=== PATIENT | female | born 1945 | race American Indian/Alaskan Native ===

== ENCOUNTER 2024-05-06 13:50 | Inpatient (IN) | payer MEDICAID, OTHER ==
[~2024-05-06] VITALS: Ht 157.5 cm; Wt 68.7 kg
[~2024-05-06 13:50] MED LIST: DIA5T PO; LEVO25TA6 PO; METF-370 PO
--- NOTE | 2024-05-06 14:43 | ED.PDOC ---
History of Present Illness HPI Comments 78F presents to the Er w/ no prior hx associated to the c/c of dizziness. Pt's friend who is the Pt's neighbor reports that the pt has been having gen weakness, Cough and Dizziness for the past 10 days. Pt states "I'm not feeling good". Pt in triage was SAT 97% RA. PMHx of Asthma, HTN and COPD. Denies chills, fever, N/V/D, SOB, CP or no other associated symptom's, modifiers, recent injuries or sick contacts at this time. Chief Complaint: Dizziness Time Seen by MD: 14:30 Primary Care Provider: NATALIE Prasad Notes: Nurses Notes, Medications Allergies: Coded Allergies: Ethanol (Verified Allergy, 02/19/12) Guaifenesin (Verified Allergy, 02/19/12) Ibuprofen (Verified Allergy, 02/19/12) Information Source: Patient, Friend Mode of Arrival: Ambulatory Severity: Moderate Timing: Days Duration: Since onset, Days Prehospital treatment: None Past Medical History PAST MEDICAL HISTORY: Asthma, COPD, HTN Surgical History: Denies all surgeries EMERGENCY PLANNING AND RESPONSE MANAGER History: No Pertinent EMERGENCY PLANNING AND RESPONSE MANAGER History Family History Family History: Reviewed,noncontributory to illness, Unknown Social History Smoker: Non-Smoker Alcohol: Denies ETOH Use Drugs: Denies Drug Use Lives In: Home Constitutional: reports: weakness; denies: chills, diaphoresis, fatigue, fever, malaise, sweats, others EENTM: denies: blurred vision, double vision, ear bleeding, ear discharge, ear drainage, ear pain, ear ringing, eye pain, eye redness, hearing loss, mouth pain, mouth swelling, nasal discharge, nose bleeding, nose congestion, nose pain, photophobia, tearing, throat pain, throat swelling, voice changes, others Respiratory: reports: cough; denies: hemoptysis, orthopnea, SOB at rest, short ness of breath, SOB with excertion, stridor, wheezing, others Cardiovascular: denies: chest pain, dizzy spells, diaphoresis, Dyspnea on exertion, edema, irregular heart beat, left arm pain, lightheadedness, palpitations, PND, syncope, others Gastrointestinal: denies: abdomen distended, abdominal pain, blood streaked bowels, constipated, diarrhea, dysphagia, difficulty swallowing, hematemesis, melena, nausea, poor appetite, poor fluid intake, rectal bleeding, rectal pain, vomiting, others Genitourinary: denies: abnormal vagina bleeding, burning, dyspareunia, dysuria, flank pain, frequency, hematuria, incontinence, pain, , vagina discharge, urgency, others Neurological: reports: dizziness; denies: fainting, headache, left sided numbness, left sided weakness, numbness, paresthesia, pre-existing deficit, right sided numbness, right sided weakness, seizure, speech problems, tingling, tremors, weakness, others Musculoskeletal: denies: back pain, gout, joint pain, joint swelling, muscle pain, muscle stiffness, neck pain, others Integumetry: denies: bruises, change in color, change in hair/nails, dryness, laceration, lesions, lumps, rash, wounds, others Allergic/Immunocompromised: denies: Difficulty Healing, Frequent Infections, Hives, Itching, others Hematologic/Lymphatic: denies: anemia, blood clots, easy bleeding, easy bruising, swollen glands, others Endocrine: denies: excessive hunger, excessive sweating, excessive thirst, excessive urination, flushing, intolerance to cold, intolerance to heat, unexplained weight gain, unexplained weight loss, others Psychiatric: denies: anxiety, bipolar disorder, depression, hopeless, panic disorder, schizophrenia, sleepless, suicidal, others All Other Systems: Reviewed and Negative Physical Exam General Appearance: Moderate Distress, Normal HEENT: Normal ENT Inspection, Pharynx Normal, TMs Normal Neck: Full Range of Motion, Non-Tender, Normal, Normal Inspection Respiratory: Chest Non-Tender, Lungs Clear, No Accessory Muscle Use, No Respiratory Distress, Normal Breath Sounds Cardiovascular: No Edema, No JVD, No Murmur, No Gallop, Normal Peripheral Pulses, Regular Rate/Rhythm Breast Exam: Deferred Gastrointestinal: No Organomegaly, Non Tender, No Pulsatile Mass, Normal Bowel Sounds, Soft Genitalia: Deferred Pelvic: Deferred Rectal: Deferred Extremities: No calf tenderness, Normal capillary refill, Normal inspection, Normal range of motion, Non-tender, No pedal edema Musculoskeletal : Apperance: Normal 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 Was a procedure done?: No Differential Dx Considerations may include: Autonomic disorder Electrolyte imbalance X-Ray, Labs, Meds, VS Vital Signs Date Time Temp Pulse Resp B/P (MAP) Pulse Ox O2 Delivery O2 Flow Rate FiO2 05/06/24 14:41 19 92 Nasal Cannula* 3 32 05/06/24 14:37 99.8 124 19 135/75 (95) 92 99.8 05/06/24 14:31 119 Lab Test 05/06/24 14:37 05/06/24 14:24 Range/Units White Blood Count 15.4 H 4.4-10.8 10^3/uL Red Blood Count 4.17 4.0-5.20 10^6/uL Hemoglobin 12.7 12.2-16.2 g/dL Hematocrit 37.9 36.0-46.0 % Mean Corpuscular Volume 91.0 80.0-100.0 fL Mean Corpuscular Hemoglobin 30.5 28.0-32.0 pg Mean Corpuscular Hemoglobin Concent 33.5 32.0-36.0 g/dL Red Cell Distribution Width 14.0 11.8-14.3 % Platelet Count 335 140-450 10^3/uL Mean Platelet Volume 7.4 6.9-10.8 fL Neutrophils (%) (Auto) 87.6 H 37.0-80.0 % Lymphocytes (%) (Auto) 5.4 L 10.0-50.0 % Monocytes (%) (Auto) 6.1 0.0-12.0 % Eosinophils (%) (Auto) 0.1 0.0-7.0 % Basophils (%) (Auto) 0.8 0.0-2.0 % Neutrophils # (Auto) 13.5 H 1.6-8.6 10 ^3/uL Lymphocytes # (Auto) 0.8 0.4-5.4 10 ^3/uL Monocytes # (Auto) 0.9 0-1.3 10 ^3/uL Eosinophils # (Auto) 0 0-0.8 10 ^3/uL Basophils # (Auto) 0.1 0-0.2 10 ^3/uL Nucleated Red Blood Cells 0.0 % Sodium Level 135 L 136-145 mmol/L Potassium Level 4.7 3.5-5.1 mmol/L Chloride Level 103 98-107 mmol/L Carbon Dioxide Level 25 20-31 mmol/L Anion Gap 7 5-15 Blood Urea Nitrogen 24 H 9-23 mg/dL Creatinine 1.10 H 0.550-1.02 mg/dL Glomerular Filtration Rate Calc 52 >90 mL/min BUN/Creatinine Ratio 21.8 H 10.0-20.0 Serum Glucose 145 H 74-106 mg/dL Calcium Level 9.1 8.7-10.4 mg/dL Troponin I High Sensitivity 990 *H </=34 ng/L POC Glucose 132 H 70-106 mg/dl Patient slightly disoriented. Came in for dizziness. Oxygen saturation is low. Tachycardia. Placed on oxygen. Unknown why her oxygen saturation is low. Patient unable to answering any questions. She does not remember events. Possible dementia. Blood sugar elevated. CT scan. Possibly will need MRI. Possible pneumonitis. Was given steroid. History of asthma. Explained to the patient. Continue to monitor. EKG does not show any acute changes. Cardiac marker elevated. WBC elevated. Was given Rocephin. Was given azithromycin. Time of 1ST Reevaluation: 15:00 Reevaluation 1ST: Unchanged Patient Education/Counseling: Diagnosis, Treatment, Prognosis Family Education/Counseling: Diagnosis, Treatment, Prognosis Departure 1 Departure Time of Disposition: 15:10 Impression: Primary Impression: Metabolic encephalopathy Additional Impressions: Pneumonitis Non-STEMI (non-ST elevated myocardial infarction) Disposition: ADMITTED INPATIENT Admit to: Med Surg Condition: Guarded Critical Care Note Critical Care Time?: Yes (90 min-critical care time only) Critical care comment: Placed on oxygen Stability Stability form required: No Heart Score Heart Score: Heart Score Response (Comments) Value History Slightly Suspicious 0 EKG Normal 0 Age >65 2 Risk Factors >3 or Hx ASHD 2 Troponin Normal limit 0 Total 4 I personally scribed for WILMA AC MD ([email or web address]) on 05/06/24 at 14:43. Electronically submitted by Florentino Mcnally ([email or web address]). WILMA AC MD May 06, 2024 14:43
[2024-05-06 15:02] LABS: Basophils # (auto) 0.1 10 ^3/uL (0-0.2); Basophils % (auto) 0.8 % (0.0-2.0); Eosinophils # (auto) 0 10 ^3/uL (0-0.8); Eosinophils % (auto) 0.1 % (0.0-7.0); Hematocrit 37.9 % (36.0-46.0); Hemoglobin 12.7 g/dL (12.2-16.2); Lymphocytes # (auto) 0.8 10 ^3/uL (0.4-5.4); Lymphocytes % (auto) 5.4 % (10.0-50.0); Mean Corpuscular Hemoglobin 30.5 pg (28.0-32.0); Mean Corpuscular Hgb Conc. 33.5 g/dL (32.0-36.0); Monocytes # (auto) 0.9 10 ^3/uL (0-1.3); Monocytes % (auto) 6.1 % (0.0-12.0); Neutrophils # (auto) 13.5 10 ^3/uL (1.6-8.6); Neutrophils % (auto) 87.6 % (37.0-80.0); Platelet Count (auto) 335 10^3/uL (140-450); Red Blood Cells 4.17 10^6/uL (4.0-5.20); White Blood Cell 15.4 10^3/uL (4.4-10.8)
[2024-05-06 15:08] LABS: Chloride 103 mmol/L (98-107); Potassium 4.7 mmol/L (3.5-5.1)
[2024-05-06 15:09] LABS: Anion Gap 7 (5-15); Calcium 9.1 mg/dL (8.7-10.4); Carbon Dioxide 25 mmol/L (20-31)
--- NOTE | 2024-05-06 15:10 | DVH ---
EXAM: CT HEAD WITHOUT CONTRAST INDICATION: dizzy TECHNIQUE: CT of the head without intravenous contrast. Radiation Dose : 1. Head: CT Dose: CTDI volume is 52.3 mGy. Dose-length product is 1031 mGy*cm The dose indicators for CT are the volume Computed Tomography (CT) Dose Index (CTDIvol) and the Dose Length Product (DLP), and are measured in units of mGy and mGy-cm, respectively. These indicators are not patient dose, but values generated from the CT scanner acquisition factors. The report includes radiation exposure data for exposures received during this examination. COMPARISON: None FINDINGS: There is no evidence of acute intracranial hemorrhage, extra-axial collection, mass effect, midline s hift, herniation or hydrocephalus. The ventricles, sulci and cisterns are age appropriate. The palomares-white differentiation is intact. Patchy periventricular and subcortical white matter hypoattenuation is nonspecific but may be related to small vessel ischemic disease. The visualized paranasal sinuses and mastoid air cells are clear. The surrounding soft tissues and osseous structures are unremarkable. IMPRESSION: No acute intracranial abnormality. Radiation optimization: All CT scans at this facility use at least one of these dose optimization fozia hniques: automated exposure control mA and/or kV adjustment per patient size (includes targeted exam s where dose is matched to clinical indication) or iterative reconstruction.
--- NOTE | 2024-05-06 15:10 | DVH ---
CHEST RADIOGRAPH Indication: sob Technique: Single frontal view of the chest was obtained COMPARISON: None FINDINGS: Lines and Tubes: None Lungs: Patchy opacities in the left lower lobe. Pleura: No effusion. No pneumothorax. Cardiomediastinal contours: Unremarkable Bones: Unremarkable IMPRESSION: Patchy opacities in the left lower lobe may represent atelectasis or early/ developing pneumonia.
[2024-05-06 15:14] LABS: BUN/Creatinine Ratio 21.8 (10.0-20.0)
[2024-05-06 15:15] LABS: Blood Urea Nitrogen 24 mg/dL (9-23); Glucose 145 mg/dL (74-106); Sodium 135 mmol/L (136-145)
[2024-05-06] MEDS: IOHEXOL 350 MG/ML 100ML IJ ONE (16:35)
--- NOTE | 2024-05-06 16:36 | DVHINCON2 ---
Date Seen: May 06, 2024 Referring Physician MD Xiang Reason for Consultation NSTEMI History of Present Illness This is a 78-year-old female who presented to the emergency room with a chief complaint of generalized weakness for 10 days. The patient complains of generalized weakness associated with some disorientation, dizziness, SOB, DE JESUS, and a dry cough progressively getting worse. Upon arrival she was found with an oxygen saturation level of 87% on room air. Denies chest pain, palpitations, diaphoresis, or syncopal events. Reports seeing an urgent care provider yesterday who prescribed azithromycin and albuterol which she has not taken. She underwent multiple 12 lead electrocardiograms x 2 revealing sinus rhythm with an associated right bundle branch block and no evidence of acute ischemia. Cardiology consulted on urgent basis given initial troponin level in the 900s ng/L. Denies family history for cardiovascular disease. Denies taking any of her previously prescribed home medications or seeing a PCP on regular basis. Significant medical history includes nmg-[id number]-[id number] diabetes mellitus, thyroid disease, COPD without O2 dependence, and tobacco use including a smoking history x 35 pack-years. Past Medical History Past medical history reviewed. No other significant than mentioned above. Past Surgical History Denies any past surgical history. Family History Family history reviewed. Denies for cardiovascular disease. Social History Denies the use of illicit drugs or alcohol. Admits to tobacco use. See HPI. Allergies: Coded Allergies: Ethanol (Verified Allergy, Unknown, 05/06/24) Guaifenesin (Verified Allergy, Unknown, 05/06/24) Ibuprofen (Verified Allergy, Unknown, 05/06/24) Home Meds Home medications reviewed. Review of Systems Constitutional: Generalized weakness Ears, Nose, & Throat: No symptom reported Eyes: No symptom reported Neurological: Dizziness, transient disorientation Pulmonary/Respiratory: SOB, dry cough Cardiovascular: No symptom reported Gastrointestinal: No symptom reported Genitourinary: No symptom reported Musculoskeletal: No symptom reported Skin: No symptom reported Psychiatric: No symptom reported Endocrine: No symptom reported Hemotologic/Lymphatic: No symptom reported Vital Signs Vital Signs Date Time Temp Pulse Resp B/P (MAP) Pulse Ox O2 Delivery O2 Flow Rate FiO2 05/06/24 15:37 103 05/06/24 14:41 19 92 Nasal Cannula* 3 32 05/06/24 14:37 99.8 135/75 (95) 99.8 Physical Exam General Appearance: Cooperative. Well developed. Well nourished. Kyfk-[id number] acute respiratory distress Head Exam: Normal inspection Neck Exam: Normal inspection. Non-tender. Normal alignment Pulmonary/Respiratory: Chest non-tender. Clear bilateral breath sounds. O2 via NC Cardiovascular/Chest: Regular rate and rhythm. S1, S2. Sinus rhythm with an associated RBBB. No murmurs. No JVD. Peripheral Pulses: 2+ Radial (R). 2+ Radial (L). 2+ Pedal (R). 2+ Pedal (L) Abdominal Exam: Normal bowel sounds. Soft. Nontender. No hepatospenomegaly. No masses Ankle Exam: Negative ankle edema Lower extremities: Negative lower extremity edema Neuro/Mental Status: A&O x3. Coherent Thoughts/Psych: Normal thought pattern. Appropriate mood and affect. Hostile Appearance: In no acute distress Skin Exam: Normal inspection. Normal color. Warm. Dry Labs/Diagnostic Data Labs Test 05/06/24 14:37 05/06/24 14:24 Range/Units White Blood Count 15.4 H 4.4-10.8 10^3/uL Red Blood Count 4.17 4.0-5.20 10^6/uL Hemoglobin 12.7 12.2-16.2 g/dL Hematocrit 37.9 36.0-46.0 % Mean Corpuscular Volume 91.0 80.0-100.0 fL Mean Corpuscular Hemoglobin 30.5 28.0-32.0 pg Mean Corpuscular Hemoglobin Concent 33.5 32.0-36.0 g/dL Red Cell Distribution Width 14.0 11.8-14.3 % Platelet Count 335 140-450 10^3/uL Mean Platelet Volume 7.4 6.9-10.8 fL Neutrophils (%) (Auto) 87.6 H 37.0-80.0 % Lymphocytes (%) (Auto) 5.4 L 10.0-50.0 % Monocytes (%) (Auto) 6.1 0.0-12.0 % Eosinophils (%) (Auto) 0.1 0.0-7.0 % Basophils (%) (Auto) 0.8 0.0-2.0 % Neutrophils # (Auto) 13.5 H 1.6-8.6 10 ^3/uL Lymphocytes # (Auto) 0.8 0.4-5.4 10 ^3/uL Monocytes # (Auto) 0.9 0-1.3 10 ^3/uL Eosinophils # (Auto) 0 0-0.8 10 ^3/uL Basophils # (Auto) 0.1 0-0.2 10 ^3/uL Nucleated Red Blood Cells 0.0 % Sodium Level 135 L 136-145 mmol/L Potassium Level 4.7 3.5-5.1 mmol/L Chloride Level 103 98-107 mmol/L Carbon Dioxide Level 25 20-31 mmol/L Anion Gap 7 5-15 Blood Urea Nitrogen 24 H 9-23 mg/dL Creatinine 1.10 H 0.550-1.02 mg/dL Glomerular Filtration Rate Calc 52 >90 mL/min BUN/Creatinine Ratio 21.8 H 10.0-20.0 Serum Glucose 145 H 74-106 mg/dL Calcium Level 9.1 8.7-10.4 mg/dL Troponin I High Sensitivity 990 *H </=34 ng/L POC Glucose 132 H 70-106 mg/dl Assessment Sepsis with associated PNA Acute hypoxic respiratory failure Rule out pulmonary emboli NSTEMI, likely type 2 secondary to above Right bundle branch block Rib-usdukyu-lfrewppho diabetes mellitus Thyroid disease Nicotine dependence Plan/Recommendation (Dr. Michel) Likely NSTEMI type 2 secondary to sepsis with pneumonia. Twelve lead electrocardiogram reviewed revealing a sinus rhythm without evidence of ischemia. We will continue further cardiac evaluation with a transthoracic echocardiogram to rule out structural heart disease. The patient has also been scheduled for a CT angio with contrast to rule out a pulmonary embolus. Initiate therapeutic Lovenox. Serial troponin levels to follow. Obtain COVID- 19 and influenza swabs. Obtain blood cultures. Initiate broad spectrum ABX therapy and IVF. Rest of recommendations per clinical course. Thank you for allowing us to participate in this patient's care. Please call if you have any questions or concerns. Critical care time: 30 min. This medical document was created using an electronic medical record system with voice recognition software and computerized dictation system. Although this document has been carefully reviewed, there might still be some phonetic and typographical errors. Occasional wrong-word or ``sound-alike substitutions may have occurred due to the inherent limitations of voice recognition software. These areas are purely typographical due to imperfections of the software programs and do not reflect any compromise in the patient's medical care. Please read the chart carefully and recognize, using context, where these substitutions have occurred. Plan discussed with: Patient, Other NYHA Physical activity limitations: NA Date of Service: May 06, 2024 Billing Provider: YOVANNY ELENA Cardiology Common Codes: 53757-[id number] CARE 30-74 MIN YOVANNY ELENA May 06, 2024 16:36
[2024-05-06] MEDS: ENOXAPARIN SOD 60 MG/0.6 ML SYRINGE SC ONE (16:58)
[2024-05-06] MEDS: cefTRIAXone 1GM/50ML D5W 50 ML IV ONE (17:00)
[2024-05-06 17:17] LABS: Triglycerides 90 mg/dL (< 150)
[2024-05-06 17:18] LABS: LDL Cholesterol 82 mg/dL (< 100)
[2024-05-06 17:19] LABS: Cholesterol 136 mg/dL (< 200)
[2024-05-06 17:21] LABS: HDL Cholesterol 39 mg/dL (40-59)
[2024-05-06] MEDS: ENOXAPARIN SOD 60 MG/0.6 ML SYRINGE SC SCH (17:21)
[2024-05-06 17:42] VITALS: PULSE 88; RESP 16; O2SAT 96
[2024-05-06 18:17] LABS: Rapid Influenza A Negative (Negative); Rapid Influenza B Negative (Negative)
[2024-05-06 18:17] LABS: COVID19 ANTIGEN SOFIA FIA NEGATIVE (NEGATIVE)
[2024-05-06] MEDS ORDERED: ONDANSETRON HCL 4 MG/2 ML VIAL IV PRN (19:30)
[2024-05-06] MEDS ORDERED: NITROGLYCERIN 0.4 MG SL TAB SL PRN (19:30)
[2024-05-06] MEDS ORDERED: ALBUTEROL SULF 2.5 MG/0.5ML(0.5%) NEB SOLN NEB PRN (19:30)
[2024-05-06] MEDS ORDERED: MORPHINE SULFATE INJ 2 MG/ml SYRG IV PRN (19:30)
[2024-05-06] MEDS ORDERED: DEXTROSE (50%) 50ML SYRG IV PRN (19:30)
[2024-05-06 20:11] LABS: Lactic Acid w/Reflex 2.6 mmol/L (0.4-2.0)
[2024-05-06 20:50] VITALS: O2SAT 92
[2024-05-06 21:16] VITALS: BP 110/57; PULSE 88; RESP 18; TEMP 99.8; O2SAT 92
[2024-05-06] MEDS: ACCU-CHEK COMFORT CURVE STRIP VI SCH (22:00)
[2024-05-06] MEDS: InsuLIN REG 1unit/0.01ml Soln (100units/ml) SC SCH (22:00)
[2024-05-06 22:05] VITALS: BP 123/74; PULSE 83; RESP 18; TEMP 97.3; O2SAT 93
[2024-05-06] MEDS: ATORVASTATIN 20 MG TAB PO SCH (22:48)
[2024-05-06] MEDS: AZITHROMYCIN 500MG/ 250ML 250 ML IV ONE (22:57)
[2024-05-06] MEDS: SODIUM CHLORIDE 0.9% 1,000 ML IV ONE (22:59)
--- NOTE | 2024-05-06 23:19 | DVHHP2 ---
History of Present Illness Reason for Visit: Generalized weakness History of Present Illness 78-year-old female presents for evaluation of generalized weakness. Patient's friend called EMS due to noting patient getting progressively weaker and complaining of dizziness over the past couple of days. Patient currently denies chest pain or shortness for breath. Denies cough or fever. No abdominal pain or nausea. Past Medical History Diabetes mellitus, hypertension, COPD, asthma Past Surgical History Denies Family History Noncontributory Smoke: No ALCOHOL: none Drugs: None Lives: with Family Review of Systems Review of Systems Review of systems are currently negative otherwise addressed in HPI. Allergies: Coded Allergies: Ethanol (Verified Allergy, Unknown, 05/06/24) Guaifenesin (Verified Allergy, Unknown, 05/06/24) Ibuprofen (Verified Allergy, Unknown, 05/06/24) Medications Current Medications Medications Dose Ordered Sig/Glory Route Start Time Stop Time Status Last Admin Dose Admin Enoxaparin Sodium 60 mg Q12HR SC 05/06/24 22:00 Albuterol 2.5 mg Q6HPRN PRN NEB 05/06/24 19:30 Levothyroxine Sodium 25 mcg QAM@0600 PO 05/07/24 06:00 Ceftriaxone Sodium 50 ml @ 100 mls/hr DAILY@09 IV 05/07/24 09:00 Azithromycin 250 ml @ 125 mls/hr DAILY IV 05/07/24 10:00 Aspirin 162 mg DAILY PO 05/07/24 10:00 Atorvastatin Calcium 20 mg HS PO 05/06/24 22:00 05/06/24 22:48 20 MG Diagnostic Test (Pha) 1 strip ACHS 05/06/24 22:00 05/06/24 22:00 1 STRIP Insulin Human Regular ACHS SC 05/06/24 22:00 Dextrose 50 ml UD PRN IV 05/06/24 19:30 Ondansetron HCl 4 mg Q4HP PRN IV 05/06/24 19:30 Nitroglycerin 0.4 mg Q5MINP PRN SL 05/06/24 19:30 Morphine Sulfate 2 mg Q30M PRN IV 05/06/24 19:30 Exam Vital Signs Vital Signs Date Time Temp Pulse Resp B/P (MAP) Pulse Ox O2 Delivery O2 Flow Rate FiO2 05/06/24 21:16 99.8 88 18 110/57 92 99.8 05/06/24 20:50 Room Air* 0 21 Exam Gen: 78 year female mild distress Skin: Warm, dry, normal color and texture, no rash. HEENT: Normocephalic atraumatic, mucous membranes moist and pink. Neck: Cervical and supraclavicular nodes normal without enlargement, trachea is midline, thyroid gland is normal without masses. Pulmonary: Clear to auscultation and percussion bilaterally. Cardiac: Regular rate and rhythm. No murmur Abdomen: Soft, nontender, nondistended, bowel sounds present all 4 quadrants, no guarding, no rigidity, no organomegaly. Extremities: No cyanosis, clubbing, no edema Neuro: Cranial nerves II through XII grossly intact, normal affect and speech, no focal motor deficits. Labs/Xrays ORDERING PHYSICIAN: WILMA AC MD PROCEDURE(s): CXRP - CHEST PORTABLE REASON: sob ORDER NUMBER(s): [id number], ACCESSION NUMBER(s): [id number] CHEST RADIOGRAPH Indication: sob Technique: Single frontal view of the chest was obtained COMPARISON: None FINDINGS: Lines and Tubes: None Lungs: Patchy opacities in the left lower lobe. Pleura: No effusion. No pneumothorax. Cardiomediastinal contours: Unremarkable Bones: Unremarkable IMPRESSION: Patchy opacities in the left lower lobe may represent atelectasis or early/ developing pneumonia. RING PHYSICIAN: WILAM AC MD PROCEDURE(s): HWOCT - HEAD WITHOUT CONTRAST REASON: dizzy ORDER NUMBER(s): [id number], ACCESSION NUMBER(s): [id number] EXAM: CT HEAD WITHOUT CONTRAST INDICATION: dizzy TECHNIQUE: CT of the head without intravenous contrast. Radiation Dose : 1. Head: CT Dose: CTDI volume is 52.3 mGy. Dose-length product is 1031 mGy*cm The dose indicators for CT are the volume Computed Tomography (CT) Dose Index (CTDIvol) and the Dose Length Product (DLP), and are measured in units of mGy and mGy-cm, respectively. These indicators are not patient dose, but values generated from the CT scanner acquisition factors. The report includes radiation exposure data for exposures received during this examination. COMPARISON: None FINDINGS: There is no evidence of acute intracranial hemorrhage, extra-axial collection, mass effect, midline shift, herniation or hydrocephalus. The ventricles, sulci and cisterns are age appropriate. The palomares-white differentiation is intact. Patchy periventricular and subcortical white matter hypoattenuation is nonspecific but may be related to small vessel ischemic disease. The visualized paranasal sinuses and mastoid air cells are clear. The surrounding soft tissues and osseous structures are unremarkable. IMPRESSION: No acute intracranial abnormality. Radiation optimization: All CT scans at this facility use at least one of these dose optimization techniques: automated exposure control mA and/or kV adjustment per patient size (includes targeted exams where dose is matched to clinical indication) or iterative reconstruction. Labs Test 05/06/24 22:22 05/06/24 21:20 05/06/24 19:33 05/06/24 16:36 Range/Units POC Glucose 120 H 70-106 mg/dl Lactic Acid Level 1.0 0.4-2.0 mmol/L Troponin I High Sensitivity 2590 *H </=34 ng/L Influenza Type A Antigen Negative Negative Influenza Type B Antigen Negative Negative Test 05/06/24 14:37 05/06/24 00:00 Range/Units White Blood Count 15.4 H 4.4-10.8 10^3/uL Red Blood Count 4.17 4.0-5.20 10^6/uL Hemoglobin 12.7 12.2-16.2 g/dL Hematocrit 37.9 36.0-46.0 % Mean Corpuscular Volume 91.0 80.0-100.0 fL Mean Corpuscular Hemoglobin 30.5 28.0-32.0 pg Mean Corpuscular Hemoglobin Concent 33.5 32.0-36.0 g/dL Red Cell Distribution Width 14.0 11.8-14.3 % Platelet Count 335 140-450 10^3/uL Mean Platelet Volume 7.4 6.9-10.8 fL Neutrophils (%) (Auto) 87.6 H 37.0-80.0 % Lymphocytes (%) (Auto) 5.4 L 10.0-50.0 % Monocytes (%) (Auto) 6.1 0.0-12.0 % Eosinophils (%) (Auto) 0.1 0.0-7.0 % Basophils (%) (Auto) 0.8 0.0-2.0 % Neutrophils # (Auto) 13.5 H 1.6-8.6 10 ^3/uL Lymphocytes # (Auto) 0.8 0.4-5.4 10 ^3/uL Monocytes # (Auto) 0.9 0-1.3 10 ^3/uL Eosinophils # (Auto) 0 0-0.8 10 ^3/uL Basophils # (Auto) 0.1 0-0.2 10 ^3/uL Nucleated Red Blood Cells 0.0 % Sodium Level 135 L 136-145 mmol/L Potassium Level 4.7 3.5-5.1 mmol/L Chloride Level 103 98-107 mmol/L Carbon Dioxide Level 25 20-31 mmol/L Anion Gap 7 5-15 Blood Urea Nitrogen 24 H 9-23 mg/dL Creatinine 1.10 H 0.550-1.02 mg/dL Glomerular Filtration Rate Calc 52 >90 mL/min BUN/Creatinine Ratio 21.8 H 10.0-20.0 Serum Glucose 145 H 74-106 mg/dL Hemoglobin A1c 6.2 H <5.7 % A1C Calcium Level 9.1 8.7-10.4 mg/dL B-Type Natriuretic Peptide 246.42 0-100 pg/mL Triglycerides Level 90 < 150 mg/dL Cholesterol Level 136 < 200 mg/dL LDL Cholesterol 82 < 100 mg/dL HDL Cholesterol 39 L 40-59 mg/dL Thyroid Stimulating Hormone (TSH) 3.05 0.55-4.78 uIU/mL SARS-CoV-2 Antigen (Rapid) Negative NEGATIVE Assessment/Plan Assessment/Plan Assessment NSTEMI Community-acquired pneumonia Leukocytosis Acute kidney injury Diabetes mellitus ? Dementia Plan Admit the patient to telemetry to the hospitalist Cardiology consultation Lovenox b.i.d. Rocephin/azithromycin Resume home medications Continue treatment per orders. Plan discussed with: Patient My Orders Orders - JOHN CASTRO Procedure Category Date Status Time Albuterol Medneb PHA 05/06/24 In Process (Ventolin Medneb) 19:30 Levothyroxine Tablet PHA 05/07/24 In Process (Synthroid Tablet) 06:00 Ceftriaxone 1gm/50ml PHA 05/07/24 In Process D5w (Rocephin) 09:00 Azithromycin 500mg/ PHA 3/20/25 In Process 250ml (Zithromax 50 10:00 Aspirin Tablet PHA 05/07/24 In Process 10:00 Atorvastatin (Lipitor) PHA 05/06/24 In Process 22:00 Basic Metabolic Panel LAB 05/07/24 Verified 04:00 Glucose Blood PHA 05/06/24 In Process (Accu-Chek Comfort 22:00 Insulin R (Human) PHA 05/06/24 In Process (Insulin R) 22:00 Dextrose 50% Syringe PHA 05/06/24 In Process 19:30 Admit ADMIT 05/06/24 Transmitted 19:19 Ondansetron Hcl PHA 05/06/24 In Process (Zofran) 19:30 Complete Blood Count LAB 05/07/24 Verified 04:00 Cardiac DIET 05/07/24 Transmitted Diet-2gna,Lofat,Lochol Breakfast Condition: Fair KRISTY 05/06/24 In Process 19:19 Bedrest With Bathroom KRISTY 05/06/24 In Process Privileg 19:19 Nitroglycerin [facility] 05/06/24 In Process Sublingual (Ntrostat 19:30 Morphine Sulfate PHA 05/06/24 In Process Injection 19:30 Stat Ekg For Chest KRISTY 05/06/24 In Process Pain 19:19 Notify Of Changes KRISTY 05/06/24 In Process From Base 19:19 Event Marketing Representative For KRISTY 05/06/24 In Process 24 Hours 19:19 Emergency Dysrhythmia [facility] 05/06/24 In Process Protocol 19:19 Rhythm Strips Once KRISTY 05/06/24 In Process Every Shift 19:19 Oxygen By Nasal RT 05/06/24 Transmitted Cannula 19:19 Date of Service: May 06, 2024 Billing Provider: JOHN CASTRO Common Visit Codes: [id number] INP/OBS CARE (HIGH) JOHN CASTRO May 06, 2024 23:19
[2024-05-06 23:53] VITALS: BP 123/74; PULSE 83; RESP 18; TEMP 97.3; O2SAT 93
[2024-05-07] VITALS (9 sets, daily range): BP systolic 110–130; BP diastolic 58–73; PULSE 73–87; RESP 16–18; TEMP 97.6–98.8; O2SAT 90–99
[2024-05-07 05:08] LABS: Basophils # (auto) 0 10 ^3/uL (0-0.2); Basophils % (auto) 0.4 % (0.0-2.0); Eosinophils # (auto) 0.1 10 ^3/uL (0-0.8); Eosinophils % (auto) 0.6 % (0.0-7.0); Hematocrit 32.6 % (36.0-46.0); Hemoglobin 10.9 g/dL (12.2-16.2); Lymphocytes % (auto) 19.6 % (10.0-50.0); Mean Corpuscular Hemoglobin 30.6 pg (28.0-32.0); Mean Corpuscular Hgb Conc. 33.5 g/dL (32.0-36.0); Mean Corpuscular Volume 91.2 fL (80.0-100.0); Monocytes # (auto) 0.9 10 ^3/uL (0-1.3); Neutrophils # (auto) 7.3 10 ^3/uL (1.6-8.6); Neutrophils % (auto) 70.4 % (37.0-80.0); Platelet Count (auto) 274 10^3/uL (140-450); Red Blood Cells 3.57 10^6/uL (4.0-5.20); Red Cell Distribution Width 13.8 % (11.8-14.3); White Blood Cell 10.4 10^3/uL (4.4-10.8)
[2024-05-07 05:19] LABS: Chloride 106 mmol/L (98-107); Potassium 3.7 mmol/L (3.5-5.1); Sodium 136 mmol/L (136-145)
[2024-05-07 05:20] LABS: Anion Gap 6 (5-15); Calcium 8.8 mg/dL (8.7-10.4); Carbon Dioxide 24 mmol/L (20-31)
[2024-05-07 05:32] LABS: Blood Urea Nitrogen 28 mg/dL (9-23); Glucose 106 mg/dL (74-106)
[2024-05-07 05:41] LABS: Urine Bacteria None Seen /hpf (None Seen)
[2024-05-07] MEDS: LEVOTHYROXINE SODIUM 25 MCG TAB PO SCH (05:47)
[2024-05-07] MEDS ORDERED: ASCO500T11 PO (05:54)
[2024-05-07] MEDS ORDERED: CHOL20007 PO (05:54)
[2024-05-07] MEDS ORDERED: VITA1POW XX (05:54)
[2024-05-07] MEDS ORDERED: BIOTPOW17 PO (05:54)
[2024-05-07 06:08] LABS: Urine Blood Negative /uL (Negative); Urine Clarity Turbid (Clear); Urine Color Yellow (Yellow); Urine Mucus FEW (None Seen); Urine Protein, UAD TRACE (Negative); Urine Specific Gravity 1.019 (1.001-1.035); Urine Squamous Epithelial Cell FEW /hpf (<5); Urine Urobilinogen Normal (Negative); Urine WBC 38 /HPF (0-5); Urine pH 5.5 (5.0-9.0)
--- NOTE | 2024-05-07 06:55 | ECG ---
[facility] Test Date: 2024-05-06 Test Time: 14:31:30 Pat Name: JOSE DOBSON Department: ER Room: 0215T A Gender: F Home Sales Service Professional: CASSIE : 1945 Requested By: WILMA AC Order Number: [id number] Reading MD: Dhiraj Michel Measurements Intervals [place] Rate: 119 P: 62 [place]: 137 QRS: -81 QRSD: 134 T: 51 QT: 359 QTc: 506 Interpretive Statements Sinus tachycardia RBBB and LAFB Probable left ventricular hypertrophy Inferior infarct, acute (LCx) Lateral leads are also involved Baseline wander in lead(s) I,II,aVR,aVL Electronically Signed On 05-09-2024 17:23:17 PDT by Dhiraj Michel Please click the below link to view image of tracing.
--- NOTE | 2024-05-07 06:56 | ECG ---
[facility] Test Date: 2024-05-06 Test Time: 20:25:38 Pat Name: JOSE DOBSON Department: ER Room: 0215T A Gender: F Master Sonar Technician: ER : 1945 Requested By: WILMA AC Order Number: [id number] Reading MD: Dhiraj Michel Measurements Intervals [place] Rate: 88 P: 82 [place]: 140 QRS: -66 QRSD: 137 T: 56 QT: 403 QTc: 488 Interpretive Statements Sinus rhythm RBBB and LAFB Probable left ventricular hypertrophy ST elevation, consider inferior injury Baseline wander in lead(s) I,III,aVL Electronically Signed On 05-09-2024 17:27:48 PDT by Dhiraj Michel Please click the below link to view image of tracing.
[2024-05-07] MEDS: cefTRIAXone 1GM/50ML D5W 50 ML IV SCH (08:13)
[2024-05-07] MEDS ORDERED: cefTRIAXone 1GM/50ML D5W 50 ML IV SCH (09:00)
[2024-05-07] MEDS: AZITHROMYCIN 500MG/ 250ML 250 ML IV SCH (09:05)
[2024-05-07] MEDS: ASPirin 81 mg TAB PO SCH (10:00)
[2024-05-07] MEDS ORDERED: ENOXAPARIN SOD 100 MG/1 ML SYRINGE SC SCH (10:00)
--- NOTE | 2024-05-07 10:58 | ECG ---
[facility] Test Date: 2024-05-06 Test Time: 15:35:44 Pat Name: JOSE DOBSON Department: ED Room: 0215T A Gender: F Junior Net Developer: ED : 1945 Requested By: WILMA AC Order Number: [id number] Reading MD: Dhiraj Michel Measurements Intervals [place] Rate: 103 P: 65 [place]: 130 QRS: -75 QRSD: 135 T: 54 QT: 355 QTc: 465 Interpretive Statements Sinus tachycardia RBBB and LAFB Probable left ventricular hypertrophy Inferior infarct, acute Lateral leads are also involved Electronically Signed On 05-09-2024 17:23:45 PDT by Dhiraj Michel Please click the below link to view image of tracing.
--- NOTE | 2024-05-07 15:07 | DVHPN2 ---
Subjective 78-year-old female with a history of COPD not on home O2, tobacco smoking, hypothyroidism, type 2 diabetes comes in chief complaint of generalized weakness and cough and shortness of breaths She has a dry cough She has a left lower lobe pneumonia Her troponin was high Changes from previous H/P or p: Changes Objective Vitals Vital Signs Date Time Temp Pulse Resp B/P (MAP) Pulse Ox O2 Delivery O2 Flow Rate FiO2 05/07/24 12:56 98.8 84 16 129/68 (88) 99 98.8 05/07/24 08:15 Room Air* 0 21 Intake/Output Intake and Output 05/07/24 07:00 Intake Total 1580 ml Balance 1580 ml Intake Oral 530 ml IV Total 1050 ml # Voids 1 General Appearance: Alert, Oriented X3, Cooperative, mild distress Cardiovascular: Regular rate, Normal S1, Normal S2 Abdomen: Normal bowel sounds, Soft, No tenderness Extremities: Other (Bilateral rhonchi at the bases) Medications Current Medications Medications Dose Ordered Sig/Glory Route Start Time Stop Time Status Last Admin Dose Admin Enoxaparin Sodium 60 mg Q12HR SC 05/06/24 22:00 05/07/24 10:21 60 MG Albuterol 2.5 mg Q6HPRN PRN NEB 05/06/24 19:30 Levothyroxine Sodium 25 mcg QAM@0600 PO 05/07/24 06:00 05/07/24 05:47 25 MCG Ceftriaxone Sodium 50 ml @ 100 mls/hr DAILY@09 IV 05/07/24 09:00 05/07/24 08:13 100 MLS/HR Azithromycin 250 ml @ 125 mls/hr DAILY IV 05/07/24 10:00 05/07/24 09:05 125 MLS/HR Aspirin 162 mg DAILY PO 05/07/24 10:00 Atorvastatin Calcium 20 mg HS PO 05/06/24 22:00 05/06/24 22:48 20 MG Diagnostic Test (Pha) 1 strip ACHS 05/06/24 22:00 05/07/24 11:11 1 STRIP Insulin Human Regular ACHS SC 05/06/24 22:00 Dextrose 50 ml UD PRN IV 05/06/24 19:30 Ondansetron HCl 4 mg Q4HP PRN IV 05/06/24 19:30 Nitroglycerin 0.4 mg Q5MINP PRN SL 05/06/24 19:30 Morphine Sulfate 2 mg Q30M PRN IV 05/06/24 19:30 Laboratory Results Laboratory Tests 05/07/24 04:58 Chemistry Test 05/07/24 04:58 Calcium Level 8.8 mg/dL (8.7-10.4) Urinalysis Test 05/07/24 05:00 Urine Color Yellow (Yellow) Urine Clarity Turbid (Clear) H Urine pH 5.5 (5.0-9.0) Urine Specific [place] 1.019 (1.001-1.035) Urine Protein Trace (Negative) H Urine Ketones Negative (Negative) Urine Blood Negative /uL (Negative) Urine Nitrite Negative (Negative) Urine Bilirubin Negative (Negative) Urine Urobilinogen Normal mg/dL (Negative) Urine Leukocyte Esterase 2+ /uL (Negative) Urine RBC 7 /hpf (0 - 4) Urine Microscopic WBC 38 /HPF (0-5) H Urine Squamous Epithelial Cells Few /hpf (<5) Urine Bacteria None seen /hpf (None Seen) Urine Mucus Few (None Seen) Urine Glucose Normal mg/dL (Normal) Assessment/Plan Assessment/Plan Acute metabolic encephalopathy Sepsis due to pneumonia Community-acquired pneumonia due to Gram-positive versus Gram-negative bacteria NSTEMI most likely type 2 secondary to sepsis and pneumonia Acute hypoxic respiratory failure Right bundle branch block Type 2 diabetes Hypothyroidism Nicotine dependence COPD Hypertension Plan IV antibiotics with Rocephin and Zithromax Lovenox Aspirin Lipitor Med neb treatments as needed Oxygen as needed Resume home medications Cardiology consult Echocardiogram Full code Monitor closely Plan discussed with: Patient Date of Service: May 07, 2024 Billing Provider: JACLYN ALLEN MD Common Visit Codes: NOT BILLABLE JACLYN ALLEN MD May 07, 2024 15:07
[2024-05-08] VITALS (11 sets, daily range): BP systolic 115–156; BP diastolic 58–75; PULSE 75–127; RESP 16–18; TEMP 97.4–98.3; O2SAT 87–98
--- NOTE | 2024-05-08 11:25 | DVHPN2 ---
Subjective No new complaints Changes from previous H/P or p: Changes Objective Vitals Vital Signs Date Time Temp Pulse Resp B/P (MAP) Pulse Ox O2 Delivery O2 Flow Rate FiO2 05/08/24 10:00 92 Room Air* 0 21 05/08/24 08:58 97.9 79 16 124/69 (87) 97.9 Intake/Output Intake and Output 05/08/24 07:00 Intake Total 1220 ml Balance 1220 ml Intake Oral 920 ml IV Total 300 ml # Voids 6 General Appearance: Alert, Oriented X3, Cooperative, mild distress Cardiovascular: Regular rate, Normal S1, Normal S2 Abdomen: Normal bowel sounds, Soft, No tenderness Extremities: Other (Bilateral rhonchi at the bases) Medications Current Medications Medications Dose Ordered Sig/Glory Route Start Time Stop Time Status Last Admin Dose Admin Enoxaparin Sodium 60 mg Q12HR SC 05/06/24 22:00 05/08/24 08:57 60 MG Albuterol 2.5 mg Q6HPRN PRN NEB 05/06/24 19:30 Levothyroxine Sodium 25 mcg QAM@0600 PO 05/07/24 06:00 05/08/24 06:21 25 MCG Ceftriaxone Sodium 50 ml @ 100 mls/hr DAILY@09 IV 05/07/24 09:00 05/08/24 08:56 100 MLS/HR Azithromycin 250 ml @ 125 mls/hr DAILY IV 05/07/24 10:00 05/08/24 08:56 125 MLS/HR Aspirin 162 mg DAILY PO 05/07/24 10:00 05/08/24 08:57 162 MG Atorvastatin Calcium 20 mg HS PO 05/06/24 22:00 05/07/24 21:31 20 MG Diagnostic Test (Pha) 1 strip ACHS 05/06/24 22:00 05/08/24 06:21 1 STRIP Insulin Human Regular ACHS SC 05/06/24 22:00 05/07/24 21:30 3 UNITS Dextrose 50 ml UD PRN IV 05/06/24 19:30 Ondansetron HCl 4 mg Q4HP PRN IV 05/06/24 19:30 Nitroglycerin 0.4 mg Q5MINP PRN SL 05/06/24 19:30 Morphine Sulfate 2 mg Q30M PRN IV 05/06/24 19:30 Laboratory Results Laboratory Tests 05/07/24 04:58 Chemistry Test 05/08/24 10:56 Calcium Level Pending Urinalysis Test 05/07/24 05:00 Urine Color Yellow (Yellow) Urine Clarity Turbid (Clear) H Urine pH 5.5 (5.0-9.0) Urine Specific [place] 1.019 (1.001-1.035) Urine Protein Trace (Negative) H Urine Ketones Negative (Negative) Urine Blood Negative /uL (Negative) Urine Nitrite Negative (Negative) Urine Bilirubin Negative (Negative) Urine Urobilinogen Normal mg/dL (Negative) Urine Leukocyte Esterase 2+ /uL (Negative) Urine RBC 7 /hpf (0 - 4) Urine Microscopic WBC 38 /HPF (0-5) H Urine Squamous Epithelial Cells Few /hpf (<5) Urine Bacteria None seen /hpf (None Seen) Urine Mucus Few (None Seen) Urine Glucose Normal mg/dL (Normal) Microbiology Microbiology Date/Time Source Procedure Growth Status 05/06/24 17:02 Blood Blood Culture - Preliminary NO GROWTH AFTER 24 HOURS OF INCUBATION. Resulted Assessment/Plan Assessment/Plan Acute metabolic encephalopathy Sepsis due to pneumonia Community-acquired pneumonia due to Gram-positive versus Gram-negative bacteria NSTEMI most likely type 2 secondary to sepsis and pneumonia Acute hypoxic respiratory failure Right bundle branch block Type 2 diabetes Hypothyroidism Nicotine dependence COPD Hypertension Plan IV antibiotics with Rocephin and Zithromax Lovenox Aspirin Lipitor Med neb treatments as needed Oxygen as needed Resume home medications Cardiology consult Echocardiogram Full code Monitor closely 05/08/2024: Continue the current management with IV antibiotics Cardiology consultation Echocardiogram is pending Monitor closely Rule out PE by doing a CT angio of the chest Anxiety: Start Xanax p.r.n. Plan discussed with: Patient My Orders Orders - JACLYN ALLEN MD Procedure Category Date Status Time Basic Metabolic Panel LAB 05/08/24 In Process 10:[address] 05/08/24 Logged Contrast 10:37 Date of Service: May 08, 2024 Billing Provider: JACLYN ALLEN MD Common Visit Codes: NOT BILLABLE JACLYN ALLEN MD May 08, 2024 11:25
[2024-05-08 11:46] LABS: Chloride 106 mmol/L (98-107); Potassium 4.4 mmol/L (3.5-5.1); Sodium 136 mmol/L (136-145)
[2024-05-08 11:47] LABS: Anion Gap 4 (5-15); Carbon Dioxide 26 mmol/L (20-31)
[2024-05-08 11:48] LABS: Calcium 9.1 mg/dL (8.7-10.4)
[2024-05-08 11:53] LABS: BUN/Creatinine Ratio 20.2 (10.0-20.0); Blood Urea Nitrogen 18 mg/dL (9-23)
[2024-05-08 11:59] LABS: Glucose 213 mg/dL (74-106)
[2024-05-08] MEDS: ALPRAZolam 0.25 MG TAB PO PRN (14:43)
[2024-05-08] MEDS: IOHEXOL 350 MG/ML 100ML IJ ONE (16:02)
--- NOTE | 2024-05-08 16:54 | DVH ---
CTA Chest with intravenous contrast INDICATION: SOB COMPARISON: None TECHNIQUE: Multidetector spiral CTA of the chest was performed of the chest with intravenous contrast . PULMONARY ANGIOGRAPHY PROTOCOL was utilized using a bolus-tracking technique centered on the main p ulmonary artery. Axial, coronal and sagittal multiplanar and MIP reformats were performed. CONTRAST: Type of contrast: Omni 350 Contrast injected: 70 ml Radiation dose : Chest: CTDI volume is 8.88 mGy. Dose-length product is 589.99 mGy*cm The dose indicators for CT are the volume computed Tomography (CT) dose Index (CTDIvol) and the dose Length product (DLP), and are measured in units of mGy and mGy-cm, respectively. These indicators are not patient dose, but values generated from the CT scanner acquisition factors. The report includes radiation exposure data for exposures received during this examination. Findings: Limited by motion. Pulmonary artery: No pulmonary embolism Lower neck: Normal thyroid. Lungs: Mild nodular atelectasis and consolidation in the lung bases. Heart/Vascular Structures: Normal heart size. Trace pericardial effusion. Lymph Nodes: Subcentimeter mediastinal lymph nodes. Pleura: Trace right pleural effusion. Musculoskeletal: No acute osseous abnormality. Soft tissues: Normal. Upper abdomen: Limited portions of the upper abdomen are unremarkable. IMPRESSION: 1. No pulmonary embolism. 2. Trace right pleural effusion. Mild nodular atelectasis and consolidation in the lung bases. Trace pericardial effusion. Clinical correlation and continued follow-up is recommended. HS:Y
[2024-05-09] VITALS (12 sets, daily range): BP systolic 115–164; BP diastolic 60–82; PULSE 75–97; RESP 15–18; TEMP 97.4–99; O2SAT 92–100
--- NOTE | 2024-05-09 10:46 | DVHSR ---
APPROVED REPORT EXAM: Two-dimensional and M-mode echocardiogram with Doppler and color Doppler. Blood Pressure: 110/58 mmHg INDICATION NSTEMI RISK FACTORS Height: 5'2", Weight: 129 DIMENSIONS LVDd4.3 (3.8-5.7cm)LA (2D)4.5 (1.9-4.0cm)Aortic Root (2.0-3.7cm) LVDs2.6 (2.5-4.0cm)LA (MM) (1.9-4.0cm)Aortic Cusp Exc (1.5-2.0cm) EF (%) 69.0 (55-70%)Rt. Atrium3.5 (1.9-4.0cm)Asc. Aorta cm IVSd1.0 (0.7-1.1cm)RV (D) (1.8-2.4cm) Mitral Valve MitralMitral Stenosis E wave1.15m/sMV Mean GR.3mmHg A wave1.29m/sMV Peak GR.6mmHg E/A ratio0.92D MVAcm2 DECEL [id number] 1/2 Timems Aortic Valve Aortic ValveAortic Stenosis V10.98m/Rajendra Mean GR.4mmHg V21.36m/Rajendra Peak GR.7mmHg LVOT Diameter2.0 (1.8-2.4cm)Doppler AVA2.26cm2 Other Information Quality : Technically LimitedRhythm : Technically limited study due to body habitus and moving. Conclusion Technically limited study. Limited acoustic windows. Patient is in a sinus rhythm. Biatrial enlargement. Concentric LVH with a sigmoid septum. Moderate mitral annular calcification. Moderate thickening of the mitral leaflets. Immobility of the base of the posterior mitral leaflet. No mitral stenosis present. From the limited views obtained the aortic valve appears to be mildly sc lerotic. The tricuspid is structurally normal. The pulmonic is not clearly visualized. Left ventricular function is preserved at about 55% with normal RV function. There is moderate to severe mitral insufficiency. Mild tricuspid regurgitation. No pericardial effusion masses or vegetations.
--- NOTE | 2024-05-09 12:37 | DVHPN2 ---
Subjective No new complaints She is on room air Changes from previous H/P or p: Changes Objective Vitals Vital Signs Date Time Temp Pulse Resp B/P (MAP) Pulse Ox O2 Delivery O2 Flow Rate FiO2 05/09/24 11:52 97 Room Air 0.0 05/09/24 11:52 21 05/09/24 08:20 98.2 82 15 115/61 (79) 98.2 Intake/Output Intake and Output 05/09/24 07:00 Intake Total 1260 ml Balance 1260 ml Intake Oral 960 ml IV Total 300 ml # Voids 6 General Appearance: Alert, Oriented X3, Cooperative, mild distress Cardiovascular: Regular rate, Normal S1, Normal S2 Abdomen: Normal bowel sounds, Soft, No tenderness Extremities: Other (Bilateral rhonchi at the bases) Medications Current Medications Medications Dose Ordered Sig/Glory Route Start Time Stop Time Status Last Admin Dose Admin Enoxaparin Sodium 60 mg Q12HR SC 05/06/24 22:00 05/09/24 08:53 60 MG Albuterol 2.5 mg Q6HPRN PRN NEB 05/06/24 19:30 Levothyroxine Sodium 25 mcg QAM@0600 PO 05/07/24 06:00 05/09/24 06:10 25 MCG Ceftriaxone Sodium 50 ml @ 100 mls/hr DAILY@09 IV 05/07/24 09:00 05/09/24 08:44 100 MLS/HR Azithromycin 250 ml @ 125 mls/hr DAILY IV 05/07/24 10:00 05/09/24 09:57 125 MLS/HR Aspirin 162 mg DAILY PO 05/07/24 10:00 05/09/24 08:53 162 MG Atorvastatin Calcium 20 mg HS PO 05/06/24 22:00 05/08/24 21:24 20 MG Diagnostic Test (Pha) 1 strip ACHS 05/06/24 22:00 05/09/24 11:38 1 STRIP Insulin Human Regular ACHS SC 05/06/24 22:00 05/09/24 11:39 3 UNITS Dextrose 50 ml UD PRN IV 05/06/24 19:30 Ondansetron HCl 4 mg Q4HP PRN IV 05/06/24 19:30 Nitroglycerin 0.4 mg Q5MINP PRN SL 05/06/24 19:30 Morphine Sulfate 2 mg Q30M PRN IV 05/06/24 19:30 Alprazolam 0.25 mg Q8HP PRN PO 05/08/24 11:30 05/08/24 14:43 0.25 MG Laboratory Results Laboratory Tests 05/07/24 04:58 05/08/24 10:56 Urinalysis Test 05/07/24 05:00 Urine Color Yellow (Yellow) Urine Clarity Turbid (Clear) H Urine pH 5.5 (5.0-9.0) Urine Specific [place] 1.019 (1.001-1.035) Urine Protein Trace (Negative) H Urine Ketones Negative (Negative) Urine Blood Negative /uL (Negative) Urine Nitrite Negative (Negative) Urine Bilirubin Negative (Negative) Urine Urobilinogen Normal mg/dL (Negative) Urine Leukocyte Esterase 2+ /uL (Negative) Urine RBC 7 /hpf (0 - 4) Urine Microscopic WBC 38 /HPF (0-5) H Urine Squamous Epithelial Cells Few /hpf (<5) Urine Bacteria None seen /hpf (None Seen) Urine Mucus Few (None Seen) Urine Glucose Normal mg/dL (Normal) Microbiology Microbiology Date/Time Source Procedure Growth Status 05/06/24 17:02 Blood Blood Culture - Preliminary NO GROWTH AFTER 48 HOURS OF INCUBATION. Resulted Assessment/Plan Assessment/Plan Acute metabolic encephalopathy Sepsis due to pneumonia Community-acquired pneumonia due to Gram-positive versus Gram-negative bacteria NSTEMI most likely type 2 secondary to sepsis and pneumonia Acute hypoxic respiratory failure Right bundle branch block Type 2 diabetes Hypothyroidism Nicotine dependence COPD Hypertension Plan IV antibiotics with Rocephin and Zithromax Lovenox Aspirin Lipitor Med neb treatments as needed Oxygen as needed Resume home medications Cardiology consult Echocardiogram Full code Monitor closely 05/08/2024: Continue the current management with IV antibiotics Cardiology consultation Echocardiogram is pending Monitor closely Rule out PE by doing a CT angio of the chest Anxiety: Start Xanax p.r.n. 05/09/2024: Continue IV antibiotics Med neb treatments as needed Xanax p.r.n. Echocardiogram showed moderate to severe mitral insufficiency Discussed with Dr. Michel, she will need cardiac workup before discharge Consult Pulmonary Medicine Monitor closely Plan discussed with: Patient My Orders Orders - JACLYN ALLEN MD Procedure Category Date Status Time *Consult CONS 05/09/24 Transmitted / 12:26 Date of Service: May 09, 2024 Billing Provider: JACLYN ALLEN MD Common Visit Codes: NOT BILLABLE JACLYN ALLEN MD May 09, 2024 12:37
--- NOTE | 2024-05-09 16:17 | DVHPN2 ---
Consult Progress Note Date Seen: May 09, 2024 Subjective Review of Systems: CVS:Normal, RESPIRATORY:Normal, NEURO:Normal Other Systems: Denies any cardiac symptoms Objective vital signs Vital Sign Date Time Temp Pulse Resp B/P (MAP) Pulse Ox O2 Delivery O2 Flow Rate FiO2 05/09/24 12:20 98.3 76 15 121/64 (83) 100 98.3 05/09/24 11:52 Room Air 0.0 05/09/24 11:52 21 Total Intake and Output 05/08/24 05/08/24 05/09/24 15:00 23:00 07:00 Intake Total 300 ml 400 ml 560 ml Balance 300 ml 400 ml 560 ml medications Current Medications Medications Dose Ordered Sig/Glory Route Start Time Stop Time Status Last Admin Dose Admin Enoxaparin Sodium 60 mg Q12HR SC 05/06/24 22:00 05/09/24 08:53 60 MG Albuterol 2.5 mg Q6HPRN PRN NEB 05/06/24 19:30 Levothyroxine Sodium 25 mcg QAM@0600 PO 05/07/24 06:00 05/09/24 06:10 25 MCG Ceftriaxone Sodium 50 ml @ 100 mls/hr DAILY@09 IV 05/07/24 09:00 05/09/24 08:44 100 MLS/HR Azithromycin 250 ml @ 125 mls/hr DAILY IV 05/07/24 10:00 05/09/24 09:57 125 MLS/HR Aspirin 162 mg DAILY PO 05/07/24 10:00 05/09/24 08:53 162 MG Atorvastatin Calcium 20 mg HS PO 05/06/24 22:00 05/08/24 21:24 20 MG Diagnostic Test (Pha) 1 strip ACHS 05/06/24 22:00 05/09/24 11:38 1 STRIP Insulin Human Regular ACHS SC 05/06/24 22:00 05/09/24 11:39 3 UNITS Dextrose 50 ml UD PRN IV 05/06/24 19:30 Ondansetron HCl 4 mg Q4HP PRN IV 05/06/24 19:30 Nitroglycerin 0.4 mg Q5MINP PRN SL 05/06/24 19:30 Morphine Sulfate 2 mg Q30M PRN IV 05/06/24 19:30 Alprazolam 0.25 mg Q8HP PRN PO 05/08/24 11:30 05/08/24 14:43 0.25 MG Temazepam 15 mg HSPRN PRN PO 05/09/24 12:45 Examination: LUNGS:Normal, CVS:Normal, NEURO:Normal laboratory and microbiology Laboratory Tests 05/08/24 10:56 05/07/24 04:58 Test 05/08/24 10:56 Range/Units Serum Glucose 213 H 74-106 mg/dL Problem List/Assessment/Plan Problem List/Assessment/Plan Sepsis with associated PNA Acute hypoxic respiratory failure NSTEMI, likely type 2 secondary to above Pulmonary emboli ruled out Right bundle branch block Mitral insufficiency, pahkqnde-to-prkphy degree Syc-kkwrxxu-cpohhzbzl diabetes mellitus Thyroid disease Nicotine dependence Plan/Recommendation (Dr. Michel) Likely NSTEMI type 2 secondary to sepsis with pneumonia. A twelve lead electrocardiogram revealed a sinus rhythm without evidence of ischemia. A transthoracic echocardiogram revealed a left ventricular ejection fraction of 55% with normal RV function and no evidence of wall motion abnormalities. The patient reports undergoing recent cardiac workup with a primary button reclaimer, Dr. Garcia, and undergoing a stress test and transthoracic echocardiogram with unremarkable findings on either 01/2024 or 02/2024. Given latest statement including a recent non-ischemic stress test and being cardiac symptom free, there is no further cardiac work-up indicated at this time. Outpatient work-up for mitral insufficiency is recommended. Kindly call if in need to re-consult. Thank you for allowing us to participate in this patient's care. This medical document was created using an electronic medical record system with voice recognition software and computerized dictation system. Although this document has been carefully reviewed, there might still be some phonetic and typographical errors. Occasional wrong-word or ``sound-alike substitutions may have occurred due to the inherent limitations of voice recognition software. These areas are purely typographical due to imperfections of the software programs and do not reflect any compromise in the patient's medical care. Please read the chart carefully and recognize, using context, where these substitutions have occurred. Plan discussed with: Patient, Other Dietary Evaluation Review Comments: 1) Add 60g CCHO restriction to cardiac diet 2) Encourage optimal PO intake 3) Advise patient on the importance of adequate hydration d/t decreased thirst mechanism among the elderly 4) F/u with pulmonary and nephrology 5) Continue to monitor I&O, labs, and skin integrity Expected Outcomes/Goals: 1) appetite and labs to improve 2) f/u in 3-5 Date of Service: May 09, 2024 Billing Provider: YOVANNY ELENA Cardiology Common Codes: [id number] CARE(High YOVANNY ELENA May 09, 2024 16:17
--- NOTE | 2024-05-09 19:22 | DVHINCON2 ---
Date of service: May 09, 2024 Referring Physician Remi Toledo MD Reason for Consultation Sepsis, pneumonia. History of Present Illness A 78-year-old woman with PMHx of COPD, asthma, diabetes mellitus and hypertension who presented to ED on 05/06/24 for evaluation of generalized weakness. Patient's friend called EMS after noting that patient was getting progressively weaker and complaining of dizziness over the past couple of days. Patient denied chest pain or shortness of breath, cough, fever, abdominal pain, N/V or other acute complaints. Patient was admitted for further care, and pulmonary consultation is requested for evaluation and management due to pneumonia and sepsis. Review of Systems: 14-point review of systems negative unless otherwise noted above. Past Medical History: Diabetes mellitus, hypertension, COPD, asthma Past Surgical History: None Medications: Reviewed. Allergies: Ethanol Guaifenesin Ibuprofen Family History: No family history of premature CAD. No family history of lung disorders. Social History: Smoker. Smoking history x 35 pack-years. No alcohol or illicit drug use. Family History: Patient reports no known family medical history. Allergies: Coded Allergies: Ethanol (Verified Allergy, Unknown, 05/06/24) Guaifenesin (Verified Allergy, Unknown, 05/06/24) Ibuprofen (Verified Allergy, Unknown, 05/06/24) Home Meds Reported Medications Levothyroxine Sodium (Levothyroxine Sodium) 25 Mcg Tab, 1 TAB PO DAILY for 90 Days, #90 05/07/24 Diazepam (VALIUM TABLET) 5 Mg Tb, 1 TAB PO HS PRN for ANXIETY for 90 Days, #90 05/07/24 Metformin Hydrochloride (Metformin Hcl) 500 Mg Tab, 1 TAB PO DAILY for 60 Days, #60 05/07/24 Biotin (Vitamin H) (Biotin) Pow, 1 PO, POW 05/07/24 Cholecalciferol (VITAMIN D3) 2,000 Unit Tab, PO DAILY, #30 TAB 5 Refills 05/07/24 Ascorbic Acid (VITAMIN C TABLET) 500 Mg Tb, PO DAILY, #30 TAB 3 Refills 05/07/24 Vitamin A (Synthetic) (Vitamin A) 1 Pow Pow, XX, POW 05/07/24 Current Medications Current Medications Medications (Trade) Dose Ordered Sig/Glory Route PRN Reason Start Time Stop Time Status Last Admin Temazepam (Restoril) 15 mg HSPRN PRN PO FOR INSOMNIA 05/09/24 12:45 Vital Signs Vital Signs Date Time Temp Pulse Resp B/P (MAP) Pulse Ox O2 Delivery O2 Flow Rate FiO2 05/09/24 16:15 97.4 89 15 148/82 (104) 97 97.4 05/09/24 11:52 Room Air 0.0 05/09/24 11:52 21 Physical Exam Gen.: Patient lying in bed in no apparent distress. Breathing on room air. Head: Normocephalic, atraumatic. Eyes: EOMI/PERRLA. Ears: Normal hearing. Normal anatomy. Neck/trachea: Trachea midline, supple. Nose: Normal external anatomy. Mouth: Moist mucous membranes. Chest: Decreased air entry bilaterally. Faint wheezing. No rhonchi. Cardiovascular: Positive S1, positive S2. Regular rate and rhythm. Abdomen: Positive bowel sounds in all 4 quadrants. Soft, non-tender, non-diste nded. : Deferred. Rectal: Deferred. Skin: Warm, dry. Intact. Extremities: 2+ radial pulses bilaterally. No lower extremity edema. Neuro: Awake, alert, oriented x3. No gross motor or sensory deficits. Cranial nerves II through XII intact. Gait not assessed. Labs/Diagnostic Data Labs Test 05/09/24 16:08 05/09/24 14:35 05/08/24 10:56 05/07/24 05:00 Range/Units POC Glucose 101 70-106 mg/dl Troponin I High Sensitivity 1008 *H </=34 ng/L Sodium Level 136 136-145 mmol/L Potassium Level 4.4 3.5-5.1 mmol/L Chloride Level 106 98-107 mmol/L Carbon Dioxide Level 26 20-31 mmol/L Anion Gap 4 L 5-15 Blood Urea Nitrogen 18 # 9-23 mg/dL Creatinine 0.89 0.550-1.02 mg/dL Glomerular Filtration Rate Calc 67 >90 mL/min BUN/Creatinine Ratio 20.2 H 10.0-20.0 Serum Glucose 213 H 74-106 mg/dL Calcium Level 9.1 8.7-10.4 mg/dL Urine Color Yellow Yellow Urine Clarity Turbid H Clear Urine pH 5.5 5.0-9.0 Urine Specific [place] 1.019 1.001-1.035 Urine Protein Trace H Negative Urine Ketones Negative Negative Urine Blood Negative Negative /uL Urine Nitrite Negative Negative Urine Bilirubin Negative Negative Urine Urobilinogen Normal Negative mg/dL Urine Leukocyte Esterase 2+ Negative /uL Urine RBC 7 0 - 4 /hpf Urine Microscopic WBC 38 H 0-5 /HPF Urine Squamous Epithelial Cells Few <5 /hpf Urine Bacteria None seen None Seen /hpf Urine Mucus Few None Seen Urine Glucose Normal Normal mg/dL Test 05/07/24 04:58 05/06/24 21:20 05/06/24 16:36 05/06/24 14:37 Range/Units White Blood Count 10.4 # 4.4-10.8 10^3/uL Red Blood Count 3.57 L 4.0-5.20 10^6/uL Hemoglobin 10.9 L 12.2-16.2 g/dL Hematocrit 32.6 #L 36.0-46.0 % Mean Corpuscular Volume 91.2 80.0-100.0 fL Mean Corpuscular Hemoglobin 30.6 28.0-32.0 pg Mean Corpuscular Hemoglobin Concent 33.5 32.0-36.0 g/dL Red Cell Distribution Width 13.8 11.8-14.3 % Platelet Count 274 140-450 10^3/uL Mean Platelet Volume 7.0 6.9-10.8 fL Neutrophils (%) (Auto) 70.4 37.0-80.0 % Lymphocytes (%) (Auto) 19.6 10.0-50.0 % Monocytes (%) (Auto) 9.0 0.0-12.0 % Eosinophils (%) (Auto) 0.6 0.0-7.0 % Basophils (%) (Auto) 0.4 0.0-2.0 % Neutrophils # (Auto) 7.3 1.6-8.6 10 ^3/uL Lymphocytes # (Auto) 2.0 0.4-5.4 10 ^3/uL Monocytes # (Auto) 0.9 0-1.3 10 ^3/uL Eosinophils # (Auto) 0.1 0-0.8 10 ^3/uL Basophils # (Auto) 0 0-0.2 10 ^3/uL Nucleated Red Blood Cells 0.0 % Lactic Acid Level 1.0 0.4-2.0 mmol/L Influenza Type A Antigen Negative Negative Influenza Type B Antigen Negative Negative Hemoglobin A1c 6.2 H <5.7 % A1C B-Type Natriuretic Peptide 246.42 0-100 pg/mL Triglycerides Level 90 < 150 mg/dL Cholesterol Level 136 < 200 mg/dL LDL Cholesterol 82 < 100 mg/dL HDL Cholesterol 39 L 40-59 mg/dL Thyroid Stimulating Hormone (TSH) 3.05 0.55-4.78 uIU/mL Test 05/06/24 00:00 Range/Units SARS-CoV-2 Antigen (Rapid) Negative NEGATIVE Microbiology Date/Time Source Procedure Growth Status 05/06/24 17:02 Blood Blood Culture - Preliminary NO GROWTH AFTER 72 HOURS OF INCUBATION. Resulted Assessment Impression: Sepsis 2/2 pneumonia Pneumonia, likely gram negative Atelectasis Kxy-PE-cdcatsddb myocardial infarction 2/2 sepsis Nicotine dependence COPD Plan: Supplemental oxygen PRN Titrate to keep O2 sats above 92%. Continue antibiotics Incentive spirometry Faint wheezing. Start Pulmicort BID neb. Cardiology recs appreciated. Monitor renal function. Monitor electrolytes. Supplement as necessary. Monitor ins and outs. Smoking cessation discussed for greater than 10 minutes No desire to quit. Accu-Cheks for glycemic monitoring. Recommend outpatient PFTs. DVT prophylaxis. Prognosis: Poor given patient's multiple co-morbidities. Rest of plan per hospitalist and other consultants. Thank you, Dr. Toledo, for allowing me to participate in this patient's care. Further recommendations will depend on the patient's clinical course. Please do not hesitate to contact me if you have any questions or concerns. This medical document was created using an electronic medical record system with [employer] dictation system. Although these documentations are being carefully reviewed, there may still be some phonetic and typographical changes. The errors are purely typographical, due to imperfection on the software program, and do not reflect any compromise in the patient's medical care. Plan discussed with: Patient, Other (LIMA Ortiz/Dr. Toledo) KARON RENTERIA MD May 09, 2024 19:22
[2024-05-10] VITALS (12 sets, daily range): BP systolic 130–157; BP diastolic 67–88; PULSE 74–112; RESP 16–17; TEMP 97.7–98.8; O2SAT 90–95
--- NOTE | 2024-05-10 13:25 | DVHPN2 ---
Subjective The patient seen and examined at bedside. No complaint today. Reviewed: Care Plan, H&P, Labs, Medications, Previous Orders, Radiology Changes from previous H/P or p: No Changes Objective Vitals Vital Signs Date Time Temp Pulse Resp B/P (MAP) Pulse Ox O2 Delivery O2 Flow Rate FiO2 05/10/24 13:05 98.1 80 17 130/67 (88) 91 98.1 05/10/24 10:00 Room Air 0.0 05/10/24 10:00 21 Intake/Output Intake and Output 05/10/24 06:59 Intake Total 2530 ml Balance 2530 ml Intake Oral 2230 ml IV Total 300 ml # Voids 10 # Bowel Movements 2 General Appearance: Alert, Oriented X3, Cooperative, mild distress HEENT: Atraumatic, PERRLA, EOMI, Mucous membr. moist/pink Neck: Supple Lungs: Clear to auscultation, Normal air movement Cardiovascular: Regular rate, Normal S1, Normal S2 Abdomen: Normal bowel sounds, Soft, No tenderness Extremities: Other (Bilateral rhonchi at the bases) Medications Current Medications Medications Dose Ordered Sig/Glory Route Start Time Stop Time Status Last Admin Dose Admin Enoxaparin Sodium 60 mg Q12HR SC 05/06/24 22:00 05/09/24 08:53 60 MG Albuterol 2.5 mg Q6HPRN PRN NEB 05/06/24 19:30 Levothyroxine Sodium 25 mcg QAM@0600 PO 05/07/24 06:00 05/10/24 06:23 25 MCG Ceftriaxone Sodium 50 ml @ 100 mls/hr DAILY@09 IV 05/07/24 09:00 05/10/24 10:14 100 MLS/HR Azithromycin 250 ml @ 125 mls/hr DAILY IV 05/07/24 10:00 05/10/24 11:46 125 MLS/HR Aspirin 162 mg DAILY PO 05/07/24 10:00 05/10/24 10:14 162 MG Atorvastatin Calcium 20 mg HS PO 05/06/24 22:00 05/09/24 21:29 20 MG Diagnostic Test (Pha) 1 strip ACHS 05/06/24 22:00 05/10/24 11:51 1 STRIP Insulin Human Regular ACHS SC 05/06/24 22:00 05/09/24 11:39 3 UNITS Dextrose 50 ml UD PRN IV 05/06/24 19:30 Ondansetron HCl 4 mg Q4HP PRN IV 05/06/24 19:30 Nitroglycerin 0.4 mg Q5MINP PRN SL 05/06/24 19:30 Morphine Sulfate 2 mg Q30M PRN IV 05/06/24 19:30 Alprazolam 0.25 mg Q8HP PRN PO 05/08/24 11:30 05/08/24 14:43 0.25 MG Temazepam 15 mg HSPRN PRN PO 05/09/24 12:45 Laboratory Results Laboratory Tests 05/07/24 04:58 05/08/24 10:56 Urinalysis Test 05/07/24 05:00 Urine Color Yellow (Yellow) Urine Clarity Turbid (Clear) H Urine pH 5.5 (5.0-9.0) Urine Specific [place] 1.019 (1.001-1.035) Urine Protein Trace (Negative) H Urine Ketones Negative (Negative) Urine Blood Negative /uL (Negative) Urine Nitrite Negative (Negative) Urine Bilirubin Negative (Negative) Urine Urobilinogen Normal mg/dL (Negative) Urine Leukocyte Esterase 2+ /uL (Negative) Urine RBC 7 /hpf (0 - 4) Urine Microscopic WBC 38 /HPF (0-5) H Urine Squamous Epithelial Cells Few /hpf (<5) Urine Bacteria None seen /hpf (None Seen) Urine Mucus Few (None Seen) Urine Glucose Normal mg/dL (Normal) Microbiology Microbiology Date/Time Source Procedure Growth Status 05/06/24 17:02 Blood Blood Culture - Preliminary NO GROWTH AFTER 72 HOURS OF INCUBATION. Resulted Labs and/or images reviewed: Labs reviewed by me Assessment/Plan Assessment/Plan Acute metabolic encephalopathy Sepsis due to pneumonia Community-acquired pneumonia due to Gram-positive versus Gram-negative bacteria NSTEMI most likely type 2 secondary to sepsis and pneumonia Acute hypoxic respiratory failure Right bundle branch block Type 2 diabetes Hypothyroidism Nicotine dependence COPD Hypertension Plan IV antibiotics with Rocephin and Zithromax Lovenox Aspirin Lipitor Med neb treatments as needed Oxygen as needed Resume home medications Cardiology consult Echocardiogram Full code Monitor closely 05/08/2024: Continue the current management with IV antibiotics Cardiology consultation Echocardiogram is pending Monitor closely Rule out PE by doing a CT angio of the chest Anxiety: Start Xanax p.r.n. 05/09/2024: Continue IV antibiotics Med neb treatments as needed Xanax p.r.n. Echocardiogram showed moderate to severe mitral insufficiency Discussed with Dr. Michel, she will need cardiac workup before discharge Consult Pulmonary Medicine Monitor closely 05/10/2024 Continue IV antibiotics Med neb treatments as needed Xanax p.r.n. Echocardiogram showed moderate to severe mitral insufficiency Waiting for cardiac workup before discharge Consult Pulmonary Medicine Monitor closely This medical document was created using an electronic medical record system with [employer] computerized dictation system. Although this document has been carefully reviewed, there may still be some phonetic and typographical errors. These areas are purely typographical due to imperfections of the software programs, and do not reflect any compromise in the patient's medical care. Plan discussed with: Patient Date of Service: May 10, 2024 Billing Provider: ODALIS POWELL MD Common Visit Codes: [id number] INP/OBS CARE(HIGH) ODALIS POWELL MD May 10, 2024 13:25
[2024-05-10] MEDS: TEMAZEPAM 15 MG CAP PO PRN (21:06)
[2024-05-10] MEDS: BUDESONIDE (INHALATION) 0.5 MG/2 ML NEB NEB SCH (22:00)
--- NOTE | 2024-05-10 23:04 | DVHPN2 ---
Objective Vitals Vital Signs Date Time Temp Pulse Resp B/P (MAP) Pulse Ox O2 Delivery O2 Flow Rate FiO2 05/10/24 22:00 95 Room Air* 0 21 05/10/24 21:00 98.1 85 16 150/74 (99) 98.1 Intake/Output Intake and Output 05/10/24 07:00 Intake Total 2530 ml Balance 2530 ml Intake Oral 2230 ml IV Total 300 ml # Voids 10 # Bowel Movements 2 General Appearance: Alert, Oriented X3, Cooperative, mild distress Cardiovascular: Regular rate, Normal S1, Normal S2 Abdomen: Normal bowel sounds, Soft, No tenderness Extremities: Other (Bilateral rhonchi at the bases) Medications Current Medications Medications Dose Ordered Sig/Glory Route Start Time Stop Time Status Last Admin Dose Admin Enoxaparin Sodium 60 mg Q12HR SC 05/06/24 22:00 05/09/24 08:53 60 MG Albuterol 2.5 mg Q6HPRN PRN NEB 05/06/24 19:30 Levothyroxine Sodium 25 mcg QAM@0600 PO 05/07/24 06:00 05/10/24 06:23 25 MCG Ceftriaxone Sodium 50 ml @ 100 mls/hr DAILY@09 IV 05/07/24 09:00 05/10/24 10:14 100 MLS/HR Azithromycin 250 ml @ 125 mls/hr DAILY IV 05/07/24 10:00 05/10/24 11:46 125 MLS/HR Aspirin 162 mg DAILY PO 05/07/24 10:00 05/10/24 10:14 162 MG Atorvastatin Calcium 20 mg HS PO 05/06/24 22:00 05/10/24 21:06 20 MG Diagnostic Test (Pha) 1 strip ACHS 05/06/24 22:00 05/10/24 22:21 1 STRIP Insulin Human Regular ACHS SC 05/06/24 22:00 05/09/24 11:39 3 UNITS Dextrose 50 ml UD PRN IV 05/06/24 19:30 Ondansetron HCl 4 mg Q4HP PRN IV 05/06/24 19:30 Nitroglycerin 0.4 mg Q5MINP PRN SL 05/06/24 19:30 Morphine Sulfate 2 mg Q30M PRN IV 05/06/24 19:30 Alprazolam 0.25 mg Q8HP PRN PO 05/08/24 11:30 05/08/24 14:43 0.25 MG Temazepam 15 mg HSPRN PRN PO 05/09/24 12:45 05/10/24 21:06 15 MG Budesonide 0.5 mg BID NEB 05/10/24 22:00 Laboratory Results Laboratory Tests 05/07/24 04:58 05/08/24 10:56 Urinalysis Test 05/07/24 05:00 Urine Color Yellow (Yellow) Urine Clarity Turbid (Clear) H Urine pH 5.5 (5.0-9.0) Urine Specific [place] 1.019 (1.001-1.035) Urine Protein Trace (Negative) H Urine Ketones Negative (Negative) Urine Blood Negative /uL (Negative) Urine Nitrite Negative (Negative) Urine Bilirubin Negative (Negative) Urine Urobilinogen Normal mg/dL (Negative) Urine Leukocyte Esterase 2+ /uL (Negative) Urine RBC 7 /hpf (0 - 4) Urine Microscopic WBC 38 /HPF (0-5) H Urine Squamous Epithelial Cells Few /hpf (<5) Urine Bacteria None seen /hpf (None Seen) Urine Mucus Few (None Seen) Urine Glucose Normal mg/dL (Normal) Microbiology Microbiology Date/Time Source Procedure Growth Status 05/06/24 17:02 Blood Blood Culture - Preliminary NO GROWTH AFTER 72 HOURS OF INCUBATION. Resulted ODALIS POWELL MD May 10, 2024 23:04
--- NOTE | 2024-05-10 23:47 | DVHPN2 ---
Progress Note - Dictate Date Seen: May 10, 2024 Medical Necessity Reason Pt with a Central, PICC or Fol: No Subjective Patient seen and examined at bedside. Breathing comfortably on room air. Overnight events reviewed. vital signs Vital Sign Date Time Temp Pulse Resp B/P (MAP) Pulse Ox O2 Delivery O2 Flow Rate FiO2 05/10/24 22:00 95 Room Air* 0 21 05/10/24 21:00 98.1 85 16 150/74 (99) 98.1 Total Intake and Output 05/09/24 05/09/24 05/10/24 15:00 23:00 07:00 Intake Total 300 ml 1030 ml 1200 ml Balance 300 ml 1030 ml 1200 ml medications Current Medications Medications Dose Ordered Sig/Glory Route Start Time Stop Time Status Last Admin Dose Admin Enoxaparin Sodium 60 mg Q12HR SC 05/06/24 22:00 05/09/24 08:53 60 MG Albuterol 2.5 mg Q6HPRN PRN NEB 05/06/24 19:30 Levothyroxine Sodium 25 mcg QAM@0600 PO 05/07/24 06:00 05/10/24 06:23 25 MCG Ceftriaxone Sodium 50 ml @ 100 mls/hr DAILY@09 IV 05/07/24 09:00 05/10/24 10:14 100 MLS/HR Azithromycin 250 ml @ 125 mls/hr DAILY IV 05/07/24 10:00 05/10/24 11:46 125 MLS/HR Aspirin 162 mg DAILY PO 05/07/24 10:00 05/10/24 10:14 162 MG Atorvastatin Calcium 20 mg HS PO 05/06/24 22:00 05/10/24 21:06 20 MG Diagnostic Test (Pha) 1 strip ACHS 05/06/24 22:00 05/10/24 22:21 1 STRIP Insulin Human Regular ACHS SC 05/06/24 22:00 05/09/24 11:39 3 UNITS Dextrose 50 ml UD PRN IV 05/06/24 19:30 Ondansetron HCl 4 mg Q4HP PRN IV 05/06/24 19:30 Nitroglycerin 0.4 mg Q5MINP PRN SL 05/06/24 19:30 Morphine Sulfate 2 mg Q30M PRN IV 05/06/24 19:30 Alprazolam 0.25 mg Q8HP PRN PO 05/08/24 11:30 05/08/24 14:43 0.25 MG Temazepam 15 mg HSPRN PRN PO 05/09/24 12:45 05/10/24 21:06 15 MG Budesonide 0.5 mg BID NEB 05/10/24 22:00 objective Gen.: Patient lying in bed in no apparent distress. Breathing on room air. Head: Normocephalic, atraumatic. Eyes: EOMI/PERRLA. Ears: Normal hearing. Normal anatomy. Neck/trachea: Trachea midline, supple. Nose: Normal external anatomy. Mouth: Moist mucous membranes. Chest: Decreased air entry bilaterally. Faint wheezing. No rhonchi. Cardiovascular: Positive S1, positive S2. Regular rate and rhythm. Abdomen: Positive bowel sounds in all 4 quadrants. Soft, non-tender, non- distended. : Deferred. Rectal: Deferred. Skin: Warm, dry. Intact. Extremities: 2+ radial pulses bilaterally. No lower extremity edema. Neuro: Awake, alert, oriented x3. No gross motor or sensory deficits. Cranial nerves II through XII intact. Gait not assessed. laboratory and microbiology Laboratory Tests 05/08/24 10:56 05/07/24 04:58 Test 05/08/24 10:56 Range/Units Serum Glucose 213 H 74-106 mg/dL Assessment/Plan Impression: Sepsis 2/2 pneumonia Pneumonia, likely gram negative Atelectasis [id number] myocardial infarction 2/2 sepsis Nicotine dependence COPD Events: Breathing on room air. Supplemental oxygen PRN Taper O2 as tolerated Continue bronchodilators/Pulmicort Continue antibiotics Incentive spirometry Anxiolytic PRN. Therapeutic Lovenox Cardiology recommendations appreciated. Accu-Cheks, ISS. Labs and imaging reviewed. Rest of plan as noted below. Plan: Supplemental oxygen PRN Titrate to keep O2 sats above 92%. Continue antibiotics Incentive spirometry Faint wheezing. Pulmicort BID neb. Cardiology recs appreciated. Monitor renal function. Monitor electrolytes. Supplement as necessary. Monitor ins and outs. Smoking cessation discussed for greater than 10 minutes No desire to quit. Accu-Cheks for glycemic monitoring. Recommend outpatient PFTs. DVT prophylaxis. Prognosis: Poor given patient's multiple co-morbidities. Rest of plan per hospitalist and other consultants. Thank you, Dr. Toledo, for allowing me to participate in this patient's care. Further recommendations will depend on the patient's clinical course. Please do not hesitate to contact me if you have any questions or concerns. This medical document was created using an electronic medical record system with [employer] dictation system. Although these documentations are being carefully reviewed, there may still be some phonetic and typographical changes. The errors are purely typographical, due to imperfection on the software program, and do not reflect any compromise in the patient's medical care. Dietary Evaluation Review Comments: 1) Add 60g CCHO restriction to cardiac diet 2) Encourage optimal PO intake 3) Advise patient on the importance of adequate hydration d/t decreased thirst mechanism among the elderly 4) F/u with pulmonary and nephrology 5) Continue to monitor I&O, labs, and skin integrity Expected Outcomes/Goals: 1) appetite and labs to improve 2) f/u in 3-5 Plan discussed with: Patient, Other (LIMA Ortiz) KARON RENTERIA MD May 10, 2024 23:47
[2024-05-11] VITALS (9 sets, daily range): BP systolic 142–158; BP diastolic 75–98; PULSE 78–104; RESP 14–18; TEMP 97.6–98.5; O2SAT 91–96
[2024-05-11 10:52] LABS: Basophils # (auto) 0.1 10 ^3/uL (0-0.2); Basophils % (auto) 0.9 % (0.0-2.0); Eosinophils # (auto) 0.1 10 ^3/uL (0-0.8); Eosinophils % (auto) 1.3 % (0.0-7.0); Hematocrit 33.6 % (36.0-46.0); Hemoglobin 11.6 g/dL (12.2-16.2); Lymphocytes # (auto) 1.7 10 ^3/uL (0.4-5.4); Lymphocytes % (auto) 23.3 % (10.0-50.0); Mean Corpuscular Hemoglobin 31.6 pg (28.0-32.0); Mean Corpuscular Hgb Conc. 34.5 g/dL (32.0-36.0); Mean Corpuscular Volume 91.6 fL (80.0-100.0); Monocytes # (auto) 0.6 10 ^3/uL (0-1.3); Monocytes % (auto) 8.2 % (0.0-12.0); Neutrophils # (auto) 4.7 10 ^3/uL (1.6-8.6); Neutrophils % (auto) 66.3 % (37.0-80.0); Platelet Count (auto) 346 10^3/uL (140-450); Red Blood Cells 3.66 10^6/uL (4.0-5.20); Red Cell Distribution Width 13.4 % (11.8-14.3); White Blood Cell 7.1 10^3/uL (4.4-10.8)
[2024-05-11 10:53] LABS: Anion Gap 8 (5-15); Calcium 9.3 mg/dL (8.7-10.4); Carbon Dioxide 29 mmol/L (20-31); Chloride 104 mmol/L (98-107); Potassium 4.6 mmol/L (3.5-5.1); Sodium 141 mmol/L (136-145)
[2024-05-11 10:59] LABS: BUN/Creatinine Ratio 18.4 (10.0-20.0); Blood Urea Nitrogen 19 mg/dL (9-23)
[2024-05-11 11:00] LABS: Glucose 163 mg/dL (74-106)
[2024-05-11] MEDS ORDERED: ATOR20TA50 PO (14:10)
[2024-05-11] MEDS ORDERED: ASPI-325 PO (14:10)
[2024-05-11] MEDS ORDERED: LOSA-533 PO (14:12)
--- NOTE | 2024-05-11 14:16 | DVHDS2 ---
Discharge Summary Date of Admission May 06, 2024 at 19:19 Date of Discharge: May 11, 2024 Labs/Diagnostic Data: Laboratory Results Test 05/11/24 11:41 05/11/24 10:20 05/09/24 14:35 05/07/24 05:00 POC Glucose 123 mg/dl (70-106) White Blood Count 7.1 10^3/uL (4.4-10.8) Red Blood Count 3.66 10^6/uL (4.0-5.20) Hemoglobin 11.6 g/dL (12.2-16.2) Hematocrit 33.6 % (36.0-46.0) Mean Corpuscular Volume 91.6 fL (80.0-100.0) Mean Corpuscular Hemoglobin 31.6 pg (28.0-32.0) Mean Corpuscular Hemoglobin Concent 34.5 g/dL (32.0-36.0) Red Cell Distribution Width 13.4 % (11.8-14.3) Platelet Count 346 10^3/uL (140-450) Mean Platelet Volume 7.3 fL (6.9-10.8) Neutrophils (%) (Auto) 66.3 % (37.0-80.0) Lymphocytes (%) (Auto) 23.3 % (10.0-50.0) Monocytes (%) (Auto) 8.2 % (0.0-12.0) Eosinophils (%) (Auto) 1.3 % (0.0-7.0) Basophils (%) (Auto) 0.9 % (0.0-2.0) Neutrophils # (Auto) 4.7 10 ^3/uL (1.6-8.6) Lymphocytes # (Auto) 1.7 10 ^3/uL (0.4-5.4) Monocytes # (Auto) 0.6 10 ^3/uL (0-1.3) Eosinophils # (Auto) 0.1 10 ^3/uL (0-0.8) Basophils # (Auto) 0.1 10 ^3/uL (0-0.2) Nucleated Red Blood Cells 0.0 % Sodium Level 141 mmol/L (136-145) Potassium Level 4.6 mmol/L (3.5-5.1) Chloride Level 104 mmol/L (98-107) Carbon Dioxide Level 29 mmol/L (20-31) Anion Gap 8 (5-15) Blood Urea Nitrogen 19 mg/dL (9-23) Creatinine 1.03 mg/dL (0.550-1.02) Glomerular Filtration Rate Calc 56 mL/min (>90) BUN/Creatinine Ratio 18.4 (10.0-20.0) Serum Glucose 163 mg/dL (74-106) Calcium Level 9.3 mg/dL (8.7-10.4) Troponin I High Sensitivity 1008 ng/L (</=34) Urine Color Yellow (Yellow) Urine Clarity Turbid (Clear) Urine pH 5.5 (5.0-9.0) Urine Specific Sunflower 1.019 (1.001-1.035) Urine Protein Trace (Negative) Urine Ketones Negative (Negative) Urine Blood Negative /uL (Negative) Urine Nitrite Negative (Negative) Urine Bilirubin Negative (Negative) Urine Urobilinogen Normal mg/dL (Negative) Urine Leukocyte Esterase 2+ /uL (Negative) Urine RBC 7 /hpf (0 - 4) Urine Microscopic WBC 38 /HPF (0-5) Urine Squamous Epithelial Cells Few /hpf (<5) Urine Bacteria None seen /hpf (None Seen) Urine Mucus Few (None Seen) Urine Glucose Normal mg/dL (Normal) Test 05/06/24 21:20 05/06/24 16:36 05/06/24 14:37 05/06/24 00:00 Lactic Acid Level 1.0 mmol/L (0.4-2.0) Influenza Type A Antigen Negative (Negative) Influenza Type B Antigen Negative (Negative) Hemoglobin A1c 6.2 % A1C (<5.7) B-Type Natriuretic Peptide 246.42 pg/mL (0-100) Triglycerides Level 90 mg/dL (< 150) Cholesterol Level 136 mg/dL (< 200) LDL Cholesterol 82 mg/dL (< 100) HDL Cholesterol 39 mg/dL (40-59) Thyroid Stimulating Hormone (TSH) 3.05 uIU/mL (0.55-4.78) SARS-CoV-2 Antigen (Rapid) Negative (NEGATIVE) Other Laboratory Tests 05/11/24 10:20 Brief Hx & Hospital Course: Final diagnoses: Acute metabolic encephalopathy Sepsis due to pneumonia Community-acquired pneumonia due to Gram-positive versus Gram-negative bacteria NSTEMI most likely type 2 secondary to sepsis and pneumonia Acute hypoxic respiratory failure Right bundle branch block Type 2 diabetes Hypothyroidism Nicotine dependence COPD Hypertension Pneumonia was treated with IV antibiotics NSTEMI was treated with aspirin Cardiology recommended no further workup since she had outpatient workup recently She is stable for discharge today F/U with PCP GEORGE Add Aspirin 81 mg qd Losartan 25 mg qd Lipitor 20 mg qhs Resume the other home meds Condition at Discharge: Stable Final Diagnosis/Problems List Acute metabolic encephalopathy Sepsis due to pneumonia Community-acquired pneumonia due to Gram-positive versus Gram-negative bacteria NSTEMI most likely type 2 secondary to sepsis and pneumonia Acute hypoxic respiratory failure Right bundle branch block Type 2 diabetes Hypothyroidism Nicotine dependence COPD Hypertension Discharge Disposition: Home SNF Discharge Will this Physician continue t: No Discharge Instruct/Medications Diet: Cardiac 2g Na,low cholest Activity: No Restrictions, As Tolerated Follow Up/Referral: PCP GEORGE Medications: Same home meds Discharge Statement: "Patient was advised to return to the ER or call 911 if any headaches, dizziness, shortness of breath, chest pain, abdominal pain, bleeding, fevers, or worsening of medical condition. Patient was counseled about treatment plan, medications, possible side effects, patientverbalized understanding. All questions were answered to the best of my ability. This discharge took greater then 30 minutes in planning, reviewing documentation, counseling the patient, and discussing with other team members." ASSESSMENT ASSESSMENT Assessment Acute metabolic encephalopathy Sepsis due to pneumonia Community-acquired pneumonia due to Gram-positive versus Gram-negative bacteria NSTEMI most likely type 2 secondary to sepsis and pneumonia Acute hypoxic respiratory failure Right bundle branch block Type 2 diabetes Hypothyroidism Nicotine dependence COPD Hypertension Date of Service: May 11, 2024 Billing Provider: JACLYN ALLEN MD Common Visit Codes: NOT BILLABLE JACLYN ALLEN MD May 11, 2024 14:16
--- NOTE | 2024-05-11 22:57 | DVHPN2 ---
Progress Note - Dictate Date Seen: May 11, 2024 Medical Necessity Reason Pt with a Central, PICC or Fol: No Subjective Patient seen and examined at bedside. Breathing comfortably on room air. Overnight events reviewed. vital signs Vital Sign Date Time Temp Pulse Resp B/P (MAP) Pulse Ox O2 Delivery O2 Flow Rate FiO2 05/11/24 16:37 97.8 86 16 158/76 (103) 92 97.8 05/11/24 10:00 Room Air* 0 21 Total Intake and Output 05/10/24 05/10/24 05/11/24 15:00 23:00 07:00 Intake Total 175 ml 1200 ml 700 ml Balance 175 ml 1200 ml 700 ml objective Gen.: Patient lying in bed in no apparent distress. Breathing on room air. Head: Normocephalic, atraumatic. Eyes: EOMI/PERRLA. Ears: Normal hearing. Normal anatomy. Neck/trachea: Trachea midline, supple. Nose: Normal external anatomy. Mouth: Moist mucous membranes. Chest: Decreased air entry bilaterally. Faint wheezing. No rhonchi. Cardiovascular: Positive S1, positive S2. Regular rate and rhythm. Abdomen: Positive bowel sounds in all 4 quadrants. Soft, non-tender, non- distended. : Deferred. Rectal: Deferred. Skin: Warm, dry. Intact. Extremities: 2+ radial pulses bilaterally. No lower extremity edema. Neuro: Awake, alert, oriented x3. No gross motor or sensory deficits. Cranial nerves II through XII intact. Gait not assessed. laboratory and microbiology Laboratory Tests 05/11/24 10:20 Test 05/11/24 10:20 Range/Units Serum Glucose 163 H 74-106 mg/dL Assessment/Plan Impression: Sepsis 2/2 pneumonia Pneumonia, likely gram negative Atelectasis [id number] myocardial infarction 2/2 sepsis Nicotine dependence COPD Events: Breathing on room air. Supplemental oxygen PRN Taper O2 as tolerated Continue bronchodilators/Pulmicort Continue antibiotics Incentive spirometry Anxiolytic PRN. Therapeutic Lovenox Cardiology recommendations appreciated. Accu-Cheks, ISS. Labs and imaging reviewed. Rest of plan as noted below. Plan: Supplemental oxygen PRN Titrate to keep O2 sats above 92%. Continue antibiotics Incentive spirometry Faint wheezing. Pulmicort BID neb. Cardiology recs appreciated. Monitor renal function. Monitor electrolytes. Supplement as necessary. Monitor ins and outs. Smoking cessation discussed for greater than 10 minutes No desire to quit. Accu-Cheks for glycemic monitoring. Recommend outpatient PFTs. DVT prophylaxis. Prognosis: Poor given patient's multiple co-morbidities. Rest of plan per hospitalist and other consultants. Thank you, Dr. Toledo, for allowing me to participate in this patient's care. Further recommendations will depend on the patient's clinical course. Please do not hesitate to contact me if you have any questions or concerns. This medical document was created using an electronic medical record system with [employer]ation system. Although these documentations are being carefully reviewed, there may still be some phonetic and typographical changes. The errors are purely typographical, due to imperfection on the software program, and do not reflect any compromise in the patient's medical care. Dietary Evaluation Review Comments: 1) Add 60g CCHO restriction to cardiac diet 2) Encourage optimal PO intake 3) Advise patient on the importance of adequate hydration d/t decreased thirst mechanism among the elderly 4) F/u with pulmonary and nephrology 5) Continue to monitor I&O, labs, and skin integrity Expected Outcomes/Goals: 1) appetite and labs to improve 2) f/u in 3-5 KARON RENTERIA MD May 11, 2024 22:57
== END 2024-05-11 19:00 | disposition home or self-care (01) | DRG 871 ==
LOC: ER 13:50 → TELE-CENTR 18:16 → ER 18:16 → OVERFLOW 19:19 → TELE-CENTR 22:00
PROVIDERS: ADMIT Internal Medicine Geriatric Medicine; ATTEND Internal Medicine Geriatric Medicine
DX: A41.50 Gram-negative sepsis, unspecified (principal); G93.41 Metabolic encephalopathy; J96.01 Acute respiratory failure with hypoxia; J15.69 Pneumonia due to other Gram-negative bacteria; I21.A1 Myocardial infarction type 2; J15.9 Unspecified bacterial pneumonia; N17.9 Acute kidney failure, unspecified; J44.0 Chronic obstructive pulmonary disease with (acute) lower respiratory infection; I10 Essential (primary) hypertension; Z20.822 Contact with and (suspected) exposure to COVID-19; E11.9 Type 2 diabetes mellitus without complications; F17.200 Nicotine dependence, unspecified, uncomplicated; I45.10 Unspecified right bundle-branch block; E03.9 Hypothyroidism, unspecified; J98.4 Other disorders of lung; I34.0 Nonrheumatic mitral (valve) insufficiency; Z79.84 Long term (current) use of oral hypoglycemic drugs; Z88.6 Allergy status to analgesic agent; Z91.048 Other nonmedicinal substance allergy status; Z79.899 Other long term (current) drug therapy
CPT/HCPCS: 36415; 70450; 71045; 71275; 80048; 80061; 81001; 82962; 83036; 83605; 83880; 84443; 84484; 85025; 87040; 87426; 87804; 93005; 93306; 94640; 96372; 99291; 99292; G0378; J1815